=== PATIENT | female | born 1990 | race African-American/Black ===

== ENCOUNTER 2017-11-05 04:18 | Emergency (ER) | payer MEDICARE, OTHER ==
[~2017-11-05] VITALS: Ht 149.9 cm; Wt 50.0 kg
[~2017-11-05 04:18] MED LIST: ACET-2178 PO; DEPO SHOT
[2017-11-05 04:37] VITALS: BP 125/100
[2017-11-05] MEDS ORDERED: TETANUS, DIPHTHERIA, PERTUSSIS VAC/PF 0.5ML (>7YR OLD) IM ONE (06:45)
[2017-11-05] MEDS ORDERED: IBUPROFEN 600MG TABLET PO ONE (06:45)
== END 2017-11-05 07:02 | disposition left against medical advice (07) ==
LOC: ER 04:18
DX: S60.511A Abrasion of right hand, initial encounter (principal); J45.909 Unspecified asthma, uncomplicated; Y93.02 Activity, running; Y92.9 Unspecified place or not applicable
CPT/HCPCS: 81025; 99281